=== PATIENT | female | born 1965 | race Caucasian/White ===

== ENCOUNTER 2018-09-25 23:20 | Emergency (ER) | payer MEDICAID ==
[~2018-09-25] VITALS: Ht 162.6 cm; Wt 62.6 kg
[2018-09-26 00:51] VITALS: BP 180/102
== END 2018-09-26 01:17 | disposition left against medical advice (07) ==
LOC: ED 09-26 00:19
DX: S20.211A Contusion of right front wall of thorax, initial encounter (principal); I10 Essential (primary) hypertension; W18.30XA Fall on same level, unspecified, initial encounter; Y93.89 Activity, other specified; Y92.89 Other specified places as the place of occurrence of the external cause; Y99.8 Other external cause status
CPT/HCPCS: 36415; 71275; 80048; 82040; 85025; 93005; 96374; 96375; 99284; J0360; J1170; J1885; J2405; Q9967